=== PATIENT | male | born 1980 | race Two or more races ===

== ENCOUNTER 2018-10-27 08:54 | Outpatient (CLI) | payer OTHER | END 2018-10-27 09:13 | disposition home or self-care (01) | LOC: RX STUDY 08:54 | DX: R13.12 Dysphagia, oropharyngeal phase (principal) ==

== ENCOUNTER 2020-05-13 13:23 | Emergency (ER) | payer OTHER ==
[~2020-05-13] VITALS: Ht 167.6 cm; Wt 81.6 kg
[2020-05-13] MEDS ORDERED: FLONASE ALLERG9.9 ML NASAL (14:58)
== END 2020-05-13 15:30 | disposition home or self-care (01) ==
LOC: ER 13:23
DX: H65.02 Acute serous otitis media, left ear (principal)